=== PATIENT | male | born 2000 | race Caucasian/White ===

== ENCOUNTER 2019-06-16 13:24 | Emergency (ER) | payer SELFPAY ==
[2019-06-16 13:42] VITALS: BP 137/66; PULSE 84; RESP 18; TEMP 36.7; O2SAT 97; BMI 22.3
--- NOTE | 2019-06-16 13:51 | XR_ITS ---
WS: [id number] RIGHT WRIST: 3 VIEW(S) TECHNIQUE: PA, oblique and lateral. HISTORY: Injury and pain COMPARISON: 03/04/2017 No acute fracture or dislocation. No joint space abnormality. No soft tissue swelling. XR/XR wrist RT min 3V* [id number] IMPRESSION: Negative RIGHT wrist.
--- NOTE | 2019-06-16 13:52 | ED_ITS ---
Documented by User: MAMADOU Bell 06/17/19 09:47 HPI - Extremity Problem General: Chief complaint: Extremity Injury, Upper Stated complaint: RIGHT HAND AND WRIST PAIN Time Seen by Provider: 06/16/19 13:43 History of Present Illness: HPI Narrative: Patient is a 18-year-old male who comes to the ED with right wrist and hand pain. Patient was at work and he states that he dropped a 70 pound bucket on his right wrist and hand area. He says that he now has pain in his right wrist and any movements in the wrist cause pain. The right wrist is also tender to touch. He has sensation and movement to his fingers. Patient rates pain a 6 out of 10. Denies any other injuries. Associated symptoms: Deny chest pain, fever(s) or rash Review of Systems Const: Denies: fever, chills or fatigue Eyes: Denies: change in vision or eye discomfort ENMT: Denies: throat pain, painful swallowing, nasal discharge or nasal congestion Card: Denies: chest pain, palpitations, edema, swelling of feet/ankles, shortness of breath on exertion or shortness of breath when lying down Resp: Denies: shortness of breath, productive cough or non-productive cough GI: Denies: abdominal pain, nausea, vomiting, diarrhea, constipation or blood in stool : Denies: flank pain, difficulty urinating, painful urination or blood in urine Musc: Reports: extremity pain (right wrist/hand); Denies: neck pain, back pain or extremity swelling Skin/Breast: Denies: rash or new lesion Neuro: Denies: headache, numbness in extremities or weakness in extremities [facility] ED PFSH: Social History Smoking and tobacco status: current every day smoker Physical Exam Narrative: EXAM NARRATIVE: Patient is a 18-year-old male who is sitting comfortably on the exam chair when I entered the room. He had an ice pack over his right wrist and appeared to be in some pain. Const: COMMON NORMALS: oriented x3 HENMT: COMMON NORMALS: normocephalic HEAD & SCALP: normocephalic MOUTH: oral and palatal mucosa normal THROAT: posterior oropharynx normal and uvula midline Neck/C-Spine: COMMON NORMALS: supple GENERAL: Yes normal visual inspection Resp: COMMON NORMALS: normal respiratory effort, no retractions, no use of accessory muscles and clear to auscultation bilaterally AUSCULTATION: clear to auscultation bilaterally Cardio: COMMON NORMALS: regular rate, regular rhythm, S1 normal heart sound, S2 normal heart sound, no gallops, no clicks, no murmurs and peripheral pulses 2+ throughout RATE: regular rate RHYTHM: regular rhythm HEART SOUNDS: S1 normal and S2 normal PERIPHERAL PULSES: pulses 2+ throughout GI: COMMON NORMALS: normal to inspection, nondistended, normoactive bowel sounds, soft to palpation, non-tender and no masses PALPATION: Yes soft : COMMON NORMALS: Yes no CVA tenderness BLADDER/KIDNEY EXAM: Yes no CVA tenderness Back/Pelvis: COMMON NORMALS: no CVA tenderness Extremity: COMMON NORMALS: normal to inspection RIGHT UPPER EXTREMITY: Yes wrist Right wrist: Yes inspection (normal inspectionm, no swelling or deformities.), Yes palpation (tender over lat and medial right wrist), Yes ROM (limited due to pain) and Yes neurovascular exam (intact) Neuro: COMMON NORMALS: oriented x3 and moves all extremities Skin: COMMON NORMALS: no rashes or lesions noted and no wounds GENERAL SKIN EXAM: no rashes or lesions noted Course Vital Signs: Vital signs: Vital Signs Temperature 98.1 F 06/16/19 13:42 Pulse Rate 78 06/16/19 15:52 Respiratory Rate 18 06/16/19 15:52 Blood Pressure 132/62 06/16/19 15:52 Pulse Oximetry 98 06/16/19 15:52 MDM - Extremity (Nontraumatic) MDM Narrative: Medical decision making narrative: Patient is a 18-year-old male who comes into the ED with right wrist pain after an injury. X-ray was performed on right wrist and showed no acute fractures. Patient was diagnosed with sprain of right wrist and put in a Velcro wrist splint. He was told to follow-up with PCP in 5 to 7 days and take Tylenol or ibuprofen for pain. Imaging Data^: Xray Ortho: Attestation: I personally reviewed and interpreted this imaging study as follows: Radiologist's impression: [address] [address] XRay Report Signed Patient: Kehsav Grimm Lucila Unit #: [id number] : 2000 Age/Sex: 18 / M ADM Date: 06/16/19 Loc: ER Room/Bed: Attending Dr: Ordering Provider/Ordering MD: Randy Diaz Date of Service: 06/16/19 Procedure(s): XR wrist RT min 3V* [id number] Accession Number(s): [id number] Report Number: [id number] WS: [id number] RIGHT WRIST: 3 VIEW(S) TECHNIQUE: PA, oblique and lateral. HISTORY: Injury and pain COMPARISON: 03/04/2017 No acute fracture or dislocation. No joint space abnormality. No soft tissue swelling. XR/XR wrist RT min 3V* [id number] IMPRESSION: Negative RIGHT wrist. Dictated By: Moira Henry DO Signed By: Moira Henry DO Signed Date/Time: 06/16/191412 DD/ 11 Discharge Plan Discharge Patient Disposition: Home, Self-Care Clinical Impression: Sprain and strain of wrist Condition: Stable Prescriptions: No Action No Known Home Medications RF: 0 Discharge Orders: Discharge Order (Routine); Ordered 06/16/19 Ordered By: Randy Diaz Discharge Diet: Regular Discharge Activity: Increase activity as tolerated Patient Instructions: Sprains - Wrist Activity Restrictions/Additional Instructions: Follow-up with your PCP in 7 days for reevaluation. You can wear Velcro wrist splint for the next several days to allow for wrist to heal. Apply ice on wrist help with swelling. Take [id number] ibuprofen or Aleve to help with pain and inflammation. Discharge Date/Time: 06/16/19 15:57 Coding Level of Care Code ED Impregnating Helper for Chg Fwd Exam Comprehensive Documented by User: Rika Bland 06/17/19 21:08 HPI - Extremity Problem General: Chief complaint: Extremity Injury, Upper Stated complaint: RIGHT HAND AND WRIST PAIN Time Seen by Provider: 06/16/19 13:43 PFSH ED PFSH: Social History Smoking and tobacco status: current every day smoker Course Vital Signs: Vital signs: Vital Signs Temperature 98.1 F 06/16/19 13:42 Pulse Rate 78 06/16/19 15:52 Respiratory Rate 18 06/16/19 15:52 Blood Pressure 132/62 06/16/19 15:52 Pulse Oximetry 98 06/16/19 15:52 MDM - Extremity (Nontraumatic) MDM Narrative: Medical decision making narrative: This patient was not seen by me, evaluated by me nor discussed with me by the midlevel provider. I was available in the ER if needed throughout their stay but was not involved or contacted about their care. I am signing this chart per hospital policy ? Dr. Bland. Discharge Plan Discharge Patient Disposition: Home, Self-Care Clinical Impression: Sprain and strain of wrist Condition: Stable Prescriptions: No Action No Known Home Medications RF: 0 Discharge Orders: Discharge Order (Routine); Ordered 06/16/19 Ordered By: Randy Diaz Discharge Diet: Regular Discharge Activity: Increase activity as tolerated Patient Instructions: Sprains - Wrist Activity Restrictions/Additional Instructions: Follow-up with your PCP in 7 days for reevaluation. You can wear Velcro wrist splint for the next several days to allow for wrist to heal. Apply ice on wrist help with swelling. Take [id number] ibuprofen or Aleve to help with pain and inflammation. Discharge Date/Time: 06/16/19 15:57 Coding Level of Care Code ED Impregnating Helper for Abel Fwlucila Exam Comprehensive
[2019-06-16] MEDS: HYDROcodone-acetaminophen 7.5-325 mg Tablet 1 TAB PO (14:44)
[2019-06-16 15:52] VITALS: BP 132/62; PULSE 78; RESP 18; O2SAT 98
== END 2019-06-16 15:57 | disposition home or self-care (01) ==
PROVIDERS: Emergency Provider Physician Assistant
DX: S63.501A Unspecified sprain of right wrist, initial encounter (principal); S66.911A Strain of unspecified muscle, fascia and tendon at wrist and hand level, right hand, initial encounter; F17.200 Nicotine dependence, unspecified, uncomplicated; W22.8XXA Striking against or struck by other objects, initial encounter
CPT/HCPCS: 12345; 29125; 73110; 99281; 99283

== ENCOUNTER 2020-02-22 12:54 | Emergency (ER) | payer SELFPAY ==
--- NOTE | 2020-02-22 12:58 | XR_ITS ---
WS: [id number] Right hand, 3 views, 02/22/2020 Clinical Data: injury Comparison: Right wrist, 06/16/2019. Findings: There is a fracture of the base of the right fifth metacarpal which is partially healed. Ho wever it is dislocated posteriorly from the triquetrum. No other fractures are seen. The remainder of the joint spaces is normal. The soft tissues are unremarkable. XR/XR hand RT min 3V* [id number] Impression: Fracture of the base of the right fifth metacarpal with partial healing with co ntinued posterior or dorsal dislocation from the triquetrum.
[2020-02-22 13:04] VITALS: BP 122/84; PULSE 99; RESP 18; TEMP 36.6; O2SAT 97; BMI 22.1
--- NOTE | 2020-02-22 13:12 | ED_ITS ---
HPI - Extremity Problem General: Chief complaint: Extremity Injury, Upper Stated complaint: R HAND INJURY Time Seen by Provider: 02/22/20 13:11 Source: patient Mode of arrival: ambulatory Limitations: no limitations History of Present Illness: HPI Narrative: Patient injured right hand about 1-1/2-month ago. Patient reports that no longer hurts but has had some deformity to the proximal fourth and fifth metacarpal. Patient was not evaluated at the time of injury. MD Complaint: other Review of Systems General: Reports: 10 or more systems reviewed and unremarkable except in HPI and below Musc: Reports: other (Right hand injury.) PFS ED PFSH: Social History Smoking and tobacco status: current every day smoker Physical Exam Const: COMMON NORMALS: no acute distress and patient oriented x3 GENERAL APPEARANCE: cooperative HENMT: COMMON NORMALS: normocephalic and Normal external nose present HEAD & SCALP: normal to inspection and normocephalic NOSE: Normal external nose present MOUTH: Normal oral and palatal mucosa present THROAT: posterior oropharynx normal Eye: GENERAL EYE: appearance normal, both eyes and all related structures Neck/C-Spine: COMMON NORMALS: full ROM Lymph: LYMPHATIC: no lymphadenopathy noted Chest: COMMONS NORMALS: normal inspection of the chest Resp: COMMON NORMALS: normal respiratory effort EFFORT & INSPECTION: Yes able to speak in complete sentences Cardio: COMMON NORMALS: regular rate and regular rhythm RATE: regular rate RHYTHM: regular rhythm GI: COMMON NORMALS: non-tender : COMMON NORMALS: Yes no CVA tenderness BLADDER/KIDNEY EXAM: Yes no CVA tenderness Back/Pelvis: COMMON NORMALS: no CVA tenderness and thoracic and lumbar spine normal to inspection Extremity: NARRATIVE EXTREMITY EXAM: Normal range of motion of the hand. Patient has some proximal deformity to the right fourth and fifth metacarpal. Neuro: COMMON NORMALS: patient oriented x3 and moves all extremities Psych: COMMON NORMALS: mental status grossly normal and cooperative Skin: COMMON NORMALS: no rashes or lesions noted GENERAL SKIN EXAM: no rashes or lesions noted Course Vital Signs: Vital signs: Vital Signs Temperature 97.9 F 02/22/20 13:04 Pulse Rate 99 02/22/20 13:04 Respiratory Rate 18 02/22/20 13:04 Blood Pressure 122/84 12/03/20 13:04 Pulse Oximetry 97 02/22/20 13:04 MDM - Extremity (Nontraumatic) MDM Narrative: Medical decision making narrative: Patient comes in today for injury to the right hand that occurred approximately 1-1/2 months ago. Patient is concerned due to the deformity at the fourth and fifth digit that has not healed normally. Differential diagnosis includes fracture, dislocation, malunion of fracture. X-ray notes some callus formation with some dislocation to the fifth proximal metacarpal. Reviewed this with patient recommended follow-up with orthopedics for evaluation and consideration for further treatment, patient reported understanding. Case management referral placed. Discharge Plan Discharge Patient Disposition: Home Clinical Impression: Fracture of base of fifth metacarpal bone of left hand Qualifiers: Encounter type: sequela Fracture type: closed Fracture alignment: displaced Qualified Code(s): S62.317S - Displaced fracture of base of fifth metacarpal bone, left hand, sequela Condition: Stable Prescriptions: No Action No Known Home Medications RF: 0 Discharge Orders: Discharge ED (Routine); Ordered 02/22/20 Ordered By: Neo Buchanan Activity Restrictions/Additional Instructions: Follow-up with orthopedics office for further treatment. Injury is already set healed this will need further evaluation by orthopedist for consideration of further treatment. Coding Level of Care Code ED Shop And Alteration Tailor for Abel Fwvaleri Exam Comprehensive
[2020-02-22 13:26] VITALS: RESP 17
--- NOTE | 2020-02-23 09:04 | DCPLANNER ---
sports centre manager had message to schedule a follow up appointment for patient with ortho. sports centre manager called the ortho clinic, spoke with Keshia, gave clinic patients information. sports centre manager was told that patients information would be printed and reviewed. Clinic will call patient with appointment information.
--- NOTE | 2020-03-05 11:28 | DCPLANNER ---
medical practice manager spoke with Keshia at the ortho clinic, patient needs to follow up with a hand specialist. medical practice manager called patient, spoke with his mother and left a message to patient to return telehealth case manager phone call.
== END 2020-02-22 13:26 | disposition home or self-care (01) ==
PROVIDERS: Emergency Provider Nurse Practitioner Family
DX: S62.317A Displaced fracture of base of fifth metacarpal bone, left hand, initial encounter for closed fracture (principal); F17.210 Nicotine dependence, cigarettes, uncomplicated; X58.XXXA Exposure to other specified factors, initial encounter
CPT/HCPCS: 12345; 73130; 99281; 99282

== ENCOUNTER 2020-03-27 12:38 | Emergency (ER) | payer SELFPAY ==
[2020-03-27 12:55] VITALS: BP 136/88; PULSE 104; RESP 16; TEMP 36.8; O2SAT 96; BMI 23.0
[2020-03-27 13:00] VITALS: BP 119/67; PULSE 99; RESP 16; TEMP 36.7; O2SAT 97
[2020-03-27 13:16] VITALS: BP 134/73; PULSE 94; RESP 16; O2SAT 98
--- NOTE | 2020-03-27 13:18 | ED_ITS ---
HPI - Skin/Abscess/Foreign Bdy General: Chief complaint: Skin/Abscess/Foreign Body Stated complaint: abscess right foot Time Seen by Provider: 03/27/20 13:04 Source: patient Mode of arrival: ambulatory Limitations: no limitations History of Present Illness: HPI narrative: Patient is a nice 19-year-old male who presents to ED today for evaluation of a right foot infection. Patient tells me approximately 5 to 6 days ago he noticed a pimple like lesion to the distal superior aspect of his foot near the fourth digit. Patient states he popped the lesion and the following day began noticing redness and swelling. Patient tells me he was seen at a clinic and prescribed 14 days of Bactrim. He states at that visit he had redness and swelling all the way to his ankle. He tells me he is on day 4 of the Bactrim course. He has noticed significant improvement and states the redness and swelling from his ankle is completely gone. He is concerned because the area directly on top of his foot seems like it is abscessing and is draining purulent material. Patient has not been running fevers. Patient has been doing warm Heidi Shaulis salt soaks. complaint: abscess/boil Onset (ago): day(s) Tetanus up to date: yes Location: R foot Pain Consistency: constant Associated symptoms: Deny chills or fever(s) Treatments prior to arrival: antibiotic Review of Systems Const: Denies: fever(s), chills, body aches, fatigue or malaise Musc: Reports: extremity pain and extremity swelling; Denies: joint pain or joint swelling Skin/Breast: Reports: other (abscess ) [facility] ED PFSH: Social History (Updated 03/27/20 @ 13:00 by Domingo Hernandez RN) Smoking and tobacco status: current every day smoker cigarettes Packs smoked per day: 0.25 Alcohol intake: current Alcohol intake frequency: few times a week Substance/Drug Use: never Physical Exam Const: COMMON NORMALS: no acute distress, average body habitus, patient oriented x3, no limitations, healthy appearing, alert and well nourished Extremity: COMMON NORMALS: full ROM GENERAL: Yes normal exam except as no ludy OTHER: full ROM of foot/ankle; see skin assessment Neuro: COMMON NORMALS: patient oriented x3, moves all extremities, no focal motor deficits, no sensory deficits noted and gait normal SENSORIUM/ORIENTATION: Yes alert Skin: OTHER: pt has an area of about 3.5cm x 3.5 to superior distal foot near 3-4 digits that is abscessed; it is actively draining and I was able to gently express a large amount of purulent material out of abscess; there is no diffuse cellulitis to foot; mild erythema to 4th digit; there is no streaking; no foul odor Course Vital Signs: Vital signs: Vital Signs Temperature 98.1 F 03/27/20 13:00 Pulse Rate 99 03/27/20 13:00 Respiratory Rate 16 03/27/20 13:00 Blood Pressure 119/67 03/27/20 13:00 Pulse Oximetry 97 03/27/20 13:00 MDM - Skin/Abscess/Foreign Bdy MDM Narrative: Medical decision making narrative: Abscess is actively draining. Large amount of purulent material was expressed from abscess. Culture obtained. Foot XR showing no bony involvement. Patient's vitals are stable. Patient admits the redness and swelling has vastly improved over the past 4 days with Bactrim use. We will have him continue the full 14-day course. He states the Bactrim was written for 1 tablet daily. I am changing him to 1 tablet twice daily. Patient was recommended to continue Epson salt soaks and keeping wound clean. Strict return to ED precautions given regarding worsening redness proximally. Imaging Data^: R foot XR: Radiologist's impression: [address] [place] [address] XRay Report Signed Patient: Keshav Grimm #: [id number] : 2000Acct#:[id number] Age/Sex: 19 / MADM Date: 03/27/20 Loc: ERRoom/Bed: Attending Dr: Ordering Provider/Ordering MD: Angela Mistry Date of Service: 03/27/20 Procedure(s): XR foot LT min 3V* [id number] Accession Number(s): [id number] Report Number: [id number] WS: [id number] Left foot, 3 views, 03/27/2020 Clinical Data: infection Comparison: None. Findings: No fractures or dislocations are seen. No bone destruction or erosion is noted. The joint spaces and soft tissues are normal. XR/XR foot LT min 3V* [id number] Impression: Negative left foot. Dictated By:Lela Riggs MD Signed By:Lela Riggs MDSigned Date/Time:03/27/20 1348 DD/ 1347 Discharge Plan Discharge Patient Disposition: Home Clinical Impression: Abscess of right foot Condition: Stable Prescriptions: New hydrocodone-acetaminophen 5-325 mg tablet 1 tab PO Q6H PRN (Reason: pain) Qty: 14 RF: 0 Bactrim DS 800-160 mg tablet 1 tab PO BID 10 Days Qty: 20 RF: 0 Discharge Orders: Discharge ED (Routine); Ordered 03/27/20 Ordered By: Angela Mistry Patient Instructions: Abscess (ED) Activity Restrictions/Additional Instructions: As discussed continue to keep wound clean and dry. You may continue the Epson salt soaks. I have changed her antibiotics to 1 tablet twice daily for the next 10 days. You need to return to the emergency department for worsening pain, worsening redness or swelling especially redness or swelling extending back into your ankle or up your leg, or fevers. Coding Level of Care Code ED Track Laying Equipment Operator for Mandyg Fwd Exam Expanded Problem Focused
--- NOTE | 2020-03-27 13:36 | XR_ITS ---
WS: [id number] Left foot, 3 views, 03/27/2020 Clinical Data: infection Comparison: None. Findings: No fractures or dislocations are seen. No bone destruction or erosion is noted. The joint spaces and soft tissues are normal.
--- NOTE | 2020-03-27 13:49 | XR_ITS ---
WS: [id number] Left foot, 3 views, 03/27/2020 Clinical Data: infection Comparison: None. Findings: No fractures or dislocations are seen. No bone destruction or erosion is noted. The joint spaces and soft tissues are normal. XR/XR foot RT min 3V* [id number] Impression: Negative left foot.
[2020-03-27 14:16] VITALS: BP 134/73; PULSE 84; RESP 14; O2SAT 97
--- NOTE | 2020-03-29 10:08 | PC.NURSE ---
Toe wound culture Wound culture MRSA+
--- NOTE | 2020-03-29 11:06 | PC.NURSE ---
Positive wound culture result given to Dr. Kemp. Per Dr. Kemp-no orders needed at this time
== END 2020-03-27 14:42 | disposition home or self-care (01) ==
PROVIDERS: Emergency Provider Physician Assistant
DX: L02.611 Cutaneous abscess of right foot (principal); F17.210 Nicotine dependence, cigarettes, uncomplicated
CPT/HCPCS: 12345; 73630; 87070; 87075; 87077; 87186; 87205; 99281; 99283

== ENCOUNTER 2025-03-20 11:24 | Emergency (ER) | payer SELFPAY ==
[2025-03-20 11:48] VITALS: BP 123/73; PULSE 89; RESP 17; TEMP 36.9; O2SAT 97; BMI 24.3
--- NOTE | 2025-03-20 12:04 | ED_ITS ---
HPI - URI/Sore Throat General: Chief Complaint: Upper Respiratory Infection Stated Complaint: nasal conjestion Time Seen by Provider: 03/20/25 11:34 Source: patient Mode of arrival: ambulatory Limitations: no limitations History of Present Illness: 24-year-old male states that he has been having severe nasal congestion and drainage over the last 4 to 5 days. States has had some milky like drainage also having maxillary sinus pressure as well. He denies any cough or fever but having some mild headaches denies any worse or improving factors. Related Data Previous Rx's ?Medication ?Instructions ?Recorded hydrocodone 5 mg-acetaminophen 325 1 tab PO Q6H PRN pa in #14 tabs 03/27/20 mg tablet cephalexin 500 mg capsule 500 mg PO TID 7 days #21 cap s 03/20/25 Allergies Allergy/AdvReac Type Severity Reaction Status Date / Time [place] Allergy ALGY-Conges Verified 03/20/25 11:54 ludy Review of Systems ENMT: Reports: nasal discharge [facility] ED PFSH: Social History (Updated 03/27/20 @ 13:00 by Domingo Hernandez RN) Smoking and tobacco/nicotine status: current every day tobacco/nicotine user cigarettes Packs smoked per day: 0.25 Alcohol intake: current Alcohol intake frequency: few times a week Substance/Drug Use: never Physical Exam Const: COMMON NORMALS: no acute distress, patient oriented x3 and healthy appearing HENMT: COMMON NORMALS: normocephalic and atraumatic HEAD & SCALP: normocephalic and atraumatic THROAT: posterior oropharynx normal OTHER: Tenderness over maxillary sinus does have nasal discharge Eye: COMMON NORMALS: Equal, round and reactive pupils present and EOMs intact bilaterally PUPIL: Yes Equal, round and reactive pupils present Neck/C-Spine: COMMON NORMALS: full ROM and supple Chest: COMMONS NORMALS: normal inspection of the chest and normal palpation of entire chest wall Resp: COMMON NORMALS: normal respiratory effort, No retractions, No use of accessory muscles and clear to auscultation bilaterally AUSCULTATION: clear to auscultation bilaterally Cardio: COMMON NORMALS: regular rate, regular rhythm and No murmurs present (Cardio) RATE: regular rate RHYTHM: regular rhythm Extremity: COMMON NORMALS: normal to inspection and full ROM Neuro: COMMON NORMALS: patient oriented x3, moves all extremities and no focal motor deficits Psych: COMMON NORMALS: mental status grossly normal, Normal thought process present and cooperative THOUGHT PROCESS: Normal thought process present Skin: COMMON NORMALS: no rashes or lesions noted and no wounds GENERAL SKIN EXAM: no rashes or lesions noted Course Vital Signs: Vital signs: Vital Signs Temperature 98.4 F 03/20/25 11:48 Pulse Rate 89 03/20/25 11:48 Respiratory Rate 17 03/20/25 11:48 Blood Pressure 123/73 03/20/25 11:48 Pulse Oximetry 97 03/20/25 11:48 Oxygen Delivery Me thod Room Air 03/20/25 11:48 MDM - URI/Sore Throat Medical Decision Making Patient presents here with sinus pressure along with nasal drainage consistent with a likely sinusitis did give him IM steroids here will prescribe Keflex for home he is well-appearing here he stable for discharge follow-up with PCP return if worsening. Medical Records I reviewed the patient's medical records. No radiology studies performed this visit Discharge Plan Discharge Patient Disposition: Home Clinical Impression: Sinusitis Condition: Stable Prescriptions: New cephalexin 500 mg capsule 500 mg PO TID 7 Days Qty: 21 0RF No Action hydrocodone-acetaminophen 5-325 mg tablet 1 tab PO Q6H PRN (Reason: pain) Qty: 14 0RF Discharge Orders: Discharge ED (Routine); Ordered 03/20/25 Ordered By: Bucky Dahl Discharge Diet: Advance as tolerated Discharge Activity: Resume usual activity Patient Instructions: Sinusitis (ED) Print Language: Arabic Coding Level of Care Code ED Home Service Consultant for Abel Dawkins
[2025-03-20] MEDS: triamcinolone 40 mg/mL SDV 80 MG IM (12:11)
[2025-03-20 12:21] VITALS: PULSE 81; O2SAT 97
[2025-03-20 12:54] LABS: Respiratory Syncytial Virus Ce NEGATIVE (Negative); SARS-CoV-2 PCR NEGATIVE (Negative)
== END 2025-03-20 12:22 | disposition home or self-care (01) ==
PROVIDERS: Emergency Provider Emergency Medicine
DX: J32.9 Chronic sinusitis, unspecified (principal); F17.210 Nicotine dependence, cigarettes, uncomplicated
CPT/HCPCS: 87637; 96372; 99284; J1100; J3301; Q0163